=== PATIENT | male | born 1985 | race Caucasian/White ===

== ENCOUNTER 2019-07-25 15:10 | Outpatient (CLI) | payer BC, SELFPAY | END 2019-07-25 15:11 | disposition home or self-care (01) | PROVIDERS: PCP Family Medicine; Visit Provider Surgery | DX: Z01.812 Encounter for preprocedural laboratory examination (principal); K40.90 Unilateral inguinal hernia, without obstruction or gangrene, not specified as recurrent | CPT/HCPCS: 36415; 86850; 86900; 86901 ==

== ENCOUNTER 2019-09-16 17:22 | Outpatient (CLI) | payer BC, SELFPAY ==
--- NOTE | ~2019-09-16 | XR_ITS ---
EXAMINATION: XR chest 2V EXAM DATE: 09/16/2019 17:36 INDICATION: Left-sided chest pain. TECHNIQUE: Frontal and lateral projections of the chest obtained and reviewed. Comparison is made to prior examination from 06/03/2018. FINDINGS: Left midlung zone granuloma. The lungs are otherwise clear. There are no pleural effusion s. The cardiomediastinal silhouette is within normal limits. There is no pneumothorax suspected. T he bones and soft tissues are unremarkable. There is no significant interval change. IMPRESSION: No acute cardiopulmonary findings. Reviewed, dictated and finalized at location A.
== END 2019-09-16 17:23 | disposition home or self-care (01) ==
LOC: ANHIMG 17:25
PROVIDERS: PCP Family Medicine; Visit Provider Family Medicine
DX: R07.89 Other chest pain (principal); R09.1 Pleurisy
CPT/HCPCS: 71046

== ENCOUNTER 2019-09-20 00:20 | Outpatient (CLI) | payer BC, SELFPAY ==
[2019-09-20 16:18] LABS: SARS-CoV-2 RNA PCR Negative
== END 2019-09-20 00:21 | disposition home or self-care (01) ==
PROVIDERS: PCP Family Medicine; Visit Provider Surgery
DX: Z01.818 Encounter for other preprocedural examination (principal); Z11.59 Encounter for screening for other viral diseases; K40.90 Unilateral inguinal hernia, without obstruction or gangrene, not specified as recurrent
CPT/HCPCS: 87635; U0003

== ENCOUNTER 2019-09-20 08:53 | Outpatient (CLI) | payer BC, SELFPAY | END 2019-09-20 08:54 | disposition home or self-care (01) | LOC: ANHLAB 08:54 | PROVIDERS: PCP Family Medicine; Visit Provider Surgery | DX: Z01.818 Encounter for other preprocedural examination (principal); K40.90 Unilateral inguinal hernia, without obstruction or gangrene, not specified as recurrent | CPT/HCPCS: 36415; 86850; 86900; 86901 ==

== ENCOUNTER 2019-09-23 00:40 | Day surgery (SDC) | payer BC, SELFPAY ==
[2019-07-22 13:06] VITALS: BMI 34.4
[2019-09-23] VITALS (10 sets, daily range): BP systolic 108–134; BP diastolic 61–75; PULSE 49–84; RESP 8–17; TEMP 36.2–36.6; O2SAT 96–100
[2019-09-23] MEDS: LACTATED RINGERS 1,000 ML 30 ML IV CONT ×3 (09:05→12:52)
--- NOTE | 2019-09-23 09:09 | P.PNAN_ITS ---
Anes - Initial Pre Proc Eval Procedure: Operation Date: 09/23/19 10:30 Proposed Procedures p Laparoscopic Right Inguinal Hernia Repair With Mesh, Davinci Assisted - Byron Woody DO Date/Time: 09/23/19 09:09 Surgeon: Byron Woody DO Pre Op Diagnosis: Right Inguinal Hernia Patient Data Age: 34 Gender: M Height: 5 ft 10 in Weight: 108.86 kg Allergies Allergy/AdvReac Type Severity Reaction Status Date / Time No Known Allergies Allergy Verified 09/16/19 16:42 Home Medications Medication Instructions Recorded Confirmed Type ibuprofen 800 mg tablet 800 mg PO TID #60 tablet 09/16/19 09/23/19 Rx Patient hx anesthesia problems: none Family hx anesthesia problems: none PMFSH Family History Family History Mother Hypertension Social History Social History Smoking status: Never smoker Alcohol intake: current 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 Questions were solicited and answers provided to the satisfaction of the patient/family/POA.
[2019-09-23] MEDS: IBUPROFEN IV 800 MG/200 ML 800 MG/200 ML BAG 400 MG IVPB (09:10)
--- NOTE | 2019-09-23 10:01 | PM.IMHP ---
H&P: HPI History of Present Illness Chief complaint: Right Inguinal Hernia Narrative: Osmani Phillips is a 34 year old male who presents with pain and a bulge in his right groin for the past year. He noticed this first while doing heavy physical activity. 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 Home Medications and Allergies Home Medications Medication Instructions Recorded Confirmed Type ibuprofen 800 mg tablet 800 mg PO TID #60 tablet 09/16/19 09/23/19 Rx Allergies Allergy/AdvReac Type Severity Reaction Status Date / Time No Known Allergies Allergy Verified 09/23/19 09:12 Vital Signs Vital Signs - 24 hr 09/23/19 08:47 Temperature 36.6 C Pulse Rate 58 L Respiratory Rate 16 Blood Pressure 122/75 Pulse Oximetry 100 Exam : Scrotum: inguinal hernia on the right Assessment and Plan Assessment and plan (1) Reducible right inguinal hernia: Code(s): K40.90 - Unilateral inguinal hernia, without obstruction or gangrene, not specified as recurrent Status: Acute Assessment and Plan: I have recommended laparoscopic right inguinal hernia repair with mesh, da Tad assisted. I have discussed the procedure, risks, benefits, and alternatives with the patient. All questions answered. No changes since last seen in office.
[2019-09-23] MEDS: ceFAZolin 2 GM/D5W 50 ML 2 GM/50 ML BAG IVPB (10:18)
[2019-09-23] MEDS: BUPIVACAINE/EPINEPHRINE 0.5% 30 ML VIAL INFILTRATE (11:00)
--- NOTE | 2019-09-23 11:43 | PM.PROC ---
Procedure Note - Detailed Date of procedure: 09/23/19 Pre-op diagnosis: Right Inguinal Hernia Post-op diagnosis: same (indirect right inguinal hernia) Procedure performed: Laparoscopic right inguinal hernia repair with Progrip mesh, da Tad assisted Description of procedure: Procedure as well as risks, benefits, and alternatives were discussed with the patient. Written consent was obtained and placed in chart prior to procedure. Patient was brought back to surgical suite. He was placed supine on operating table. Time-out was done to confirm patient and procedure. He was then intubated by Anesthesia Department. His abdomen was prepped and draped in sterile fashion using chlorhexidine prep. 0.5% bupivacaine with epinephrine was infiltrated at each location for incision. An 8 mm incision was made in the left lateral abdomen, and a 5 mm Optiview trocar was advanced through the abdominal layers under direct visualization. Once inside the abdominal cavity, carbon dioxide insufflation was used to create a pneumoperitoneum. A camera was inserted and the abdominal cavity was inspected. The patient was placed in slight Trendelenburg position. An 8 millimeter incision was made on the right lateral abdomen and an 8 millimeter trocar was inserted under direct visualization. Another 8 millimeter incision was made just superior to the umbilicus and an 8 millimeter trocar was inserted under direct visualization. The 5 mm port was then removed and this was replaced with another 8 mm robotic port. The robotic arms were brought up to the patient's bedside and secured to the ports. The camera and instruments were inserted. I then moved over to the robotic console and took control of the camera and instruments. After careful inspection of the abdominal cavity, I began scoring the peritoneum along the right lower quadrant using scissors with electrocautery. The preperitoneal plane was entered and this was carefully dissected caudally along the inferior epigastric vessels. Careful dissection with scissors with electrocautery and blunt dissection was used to continue this dissection. I dissected far enough laterally to allow for mesh placement, and also dissected medially to identify the pubic arch and Cecilio's ligament. The hernia sac was identified and carefully dissected posteriorly. The cord contents were also identified and the peritoneum was carefully dissected far enough posteriorly to allow for mesh placement. Once an adequate pocket was created, I then placed the mesh within the preperitoneal pocket and carefully unfolded it. The mesh was centered on the hernia defect with adequate overlap circumferentially. The inferior edge of the mesh was inspected to ensure that it was far enough away from the peritoneal edge. The mesh appeared in proper position overlying the entire myopectineal orifice. The peritoneum was then closed over the mesh using a 3-0 V-lock running absorbable suture. The robotic instruments were removed. The robotic arms were disengaged from the ports and moved away from the bedside. The patient was flattened out in bed, the ports were removed under direct visualization, and the pneumoperitoneum was released. The skin of the incisions was approximated using 4-0 Monocryl subcuticular suture, and Exofin glue was applied on top. The patient was awakened from anesthesia, extubated, and transferred to recovery. Implants: Progrip Mesh 10cm x 15cm Anesthesia: GETA and local (0.5% bupivicaine with epi) Surgeon: Byron Woody DO Estimated blood loss (mL): 5 Drains: No Packing: No Pathology: none sent Complications: No immediate complications Condition: stable Disposition: same day Findings: This is a 34-year-old man who presents with a right groin bulge and tenderness with activity. He noticed this about a year ago while lifting a heavy objects. He has had a dull pain in this region ever since. He was found to have a reducible right inguinal
== END 2019-09-23 15:39 | disposition home or self-care (01) ==
PROVIDERS: PCP Family Medicine; Visit Provider Surgery
PROC: 8E0Y4CZ Robotic Assisted Procedure of Lower Extremity, Percutaneous Endoscopic Approach (ICD-10-PCS; CPT 49650; principal; 2019-09-23 10:30)
DX: K40.90 Unilateral inguinal hernia, without obstruction or gangrene, not specified as recurrent (principal); E66.9 Obesity, unspecified; Z68.34 Body mass index [BMI] 34.0-34.9, adult
CPT/HCPCS: 49650; S2900; 36415; 86850; 86900; 86901; 87635; A9270; C1781; C9803; J0330; J0690; J1100; J1741; J2001; J2250; J2405; J2710; J3010; J7120; U0003

== ENCOUNTER 2022-02-09 22:00 | Emergency (ER) | payer BC, SELFPAY ==
[2022-02-09] VITALS (7 sets, daily range): BP systolic 128–140; BP diastolic 78–87; PULSE 52–60; RESP 15–19; TEMP 36.4; O2SAT 100
--- NOTE | ~2022-02-09 | CT_ITS ---
EXAMINATION: CT abdomen pelvis w con DATE: 02/10/2022 00:04 INDICATION: Right lower quadrant abdominal pain TECHNIQUE: Computed tomography (CT) of the abdomen and pelvis was performed with 100 CC Omnipaque 350 intravenous contrast. Automated exposure control and iterative reconstruction technique were employe d. Exam dose: 1396.89 mGy-cm total exam DLP. COMPARISON: None. FINDINGS: Mild bilateral gynecomastia, right greater than left. Included skeletal structures are unremarkable. The lung bases are clear of infiltrate or consolidatio n. Normal heart size. The liver, gallbladder, bile ducts, spleen, pancreas, pancreatic duct, and adrenal glands and kidneys are normal. There is a very small cyst of the upper pole of the left kidney and a couple of small le ft renal cysts. No urinary tract calculus or hydroureteronephrosis. The urinary bladder is unremarkab le. Normal caliber of the abdominal aorta. No intraperitoneal or retroperitoneal or pelvic mass lesion or adenopathy or ascites. Mild bilateral fat containing inguinal hernias. Normal appendix. No bowel obstruction or intraperitoneal free air. Small fat-containing umbilical hernia. IMPRESSION: Normal renal cysts Normal appendix Bilateral fat-containing inguinal hernias and fat-containing umbilical hernia Reviewed, dictated and finalized at Location A. Reviewed, dictated and finalized at location A.
--- NOTE | 2022-02-09 22:44 | ED.ABDPAIN ---
HPI - Abdominal Pain General Chief Complaint: Abdominal Pain Stated Complaint: Right Lower Quadrant Pain Time Seen by Provider: 02/09/22 22:23 Source: RN notes reviewed History of Present Illness HPI narrative: Patient presents emergency room from home for abdominal pain. Patient states pain began approximately 5 days ago. The pain is located in the right lower quadrant and radiates to the back. Described as sharp and stabbing. Denies any fevers or chills denies any nausea vomiting diarrhea or any other symptoms. States he did not take any medication for the pain patient states the pain does worsen when he sits upright Related Data Home Medications Medication Instructions Recorded Confirmed ibuprofen 800 mg tablet 800 mg PO .prn 10/10/19 10/24/19 Allergies Allergy/AdvReac Type Severity Reaction Status Date / Time No Known Allergies Allergy Verified 02/09/22 22:20 Review of Systems Review of Systems: Gen.: Denies fevers or chills ENT: Denies congestion Respiratory: Denies shortness of breath or cough CV: Denies chest pain or palpitations GI: See HPI Musculoskeletal: Denies back pain or muscle pain Neuro: Denies numbness, tingling, weakness or focal weakness Skin: Denies rash Except as documented, all other systems reviewed and negative [facility] Past Medical History Medical History (Updated 02/10/22 @ 00:25 by Keegan Archer DO) Patient denies significant medical history Surgical History Surgical History S/P laparoscopic hernia repair Family History Family History Mother Hypertension Social History Social History Smoking status: Never smoker Alcohol intake: current 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 No clubbing, cyanosis or edema. NEURO: Awake and alert. Following commands, speech normal, no focal deficits SKIN:: Warm, dry. Normal Color PSYCHIATRIC: Normal affect/mood Course Course Emergency Course: Patient states that they are feeling much better at this time. States abdominal pain has resolved. Repeat abdominal exam shows the patient's abdomen to be soft and nontender. Discussed with patient results of workup and diagnosis. Discussed need for follow-up with primary care physician, reasons to return to the emergency department in proper use of medication. Patient understands and agrees to current treatment plan Vital Signs Vital signs: Vital Signs Temperature 97.6 F 02/09/22 22:20 Pulse Rate 59 L 02/09/22 22:20 Respiratory Rate 16 02/09/22 22:20 Blood Pressure 128/84 02/09/22 22:20 Pulse Oximetry 100 02/09/22 22:20 Oxygen Delivery Room Air 02/09/22 22:20 Temperature 97.6 F 02/09/22 22:20 Pulse Rate 58 L 02/10/22 00:01 Respiratory Rate 16 02/10/22 00:01 Blood Pressure 133/78 02/09/22 23:46 Pulse Oximetry 100 02/10/22 00:01 Oxygen Delivery Room Air 02/09/22 22:20 MDM - Abdominal Pain MDM Narrative Medical decision making narrative: Patient's abdomen is soft without significant pain or signs of surgical abdomen on serial exams. Lab and x-ray evaluations are reviewed and patient is felt to be a reasonable candidate for outpatient management. Patient was instructed as to limitations of x-ray and laboratory evaluation and encouraged to return to ED or primary physician for repeat exam in 12 hours if continued or w
[2022-02-09 22:46] LABS: Basophils Absolute Auto 0.1 K/mm3 (0.0-0.1); Basophils Percent Auto 0.9 % (0.2-1.2); Eosinophils Absolute Auto 0.4 K/mm3 (0-0.3); Eosinophils Percent Auto 3.6 % (0-4.4); Hematocrit 47.7 % (42.0-52.0); Immature Granulocyte Absolute 0.07 K/mm3 (0.00-0.031); Immature Granulocyte Percent A 0.7 % (0-0.5); Lymphocytes Absolute Auto 4.54 K/mm3 (0.9-3.2); Lymphocytes Percent Auto 42.5 % (18.3-44.2); Mean Corpuscular HGB Conc 33.5 g/dl (32-36); Mean Corpuscular Hemoglobin 29.6 pg (26-34); Mean Corpuscular Volume 88.3 fl (80-100); Mean Platelet Volume 9.9 fl (7.4-10.4); Monocytes Absolute Auto 0.9 K/mm3 (0.1-0.6); Monocytes Percent Auto 8.3 % (2.6-8.5); Neutrophils Absolute Auto 4.7 K/mm3 (1.3-6.7); Platelet Count Result 308 k/mm3 (150-375); Red Cell Distribution Width 12.5 % (11.5-14.5); White Blood Count 10.7 K/mm3 (4.5-10.0)
[2022-02-09] MEDS: SODIUM CHLORIDE 0.9% IV 1,000 ML 999 ML IV CONT (22:59)
[2022-02-09] MEDS: KETOROLAC 30 MG/ML VIAL (*BKC) IV PUSH (22:59)
[2022-02-09 23:21] LABS: Appearance Urine Clear (Clear); Bilirubin Urine Negative (Negative); Blood Urine Negative (Negative); Color Urine Yellow (Yellow); Glucose Urine UA Negative (Negative); Ketones Urine Trace mg/dL (Negative); Leukocyte Esterase Ur Negative LEU/UL (Negative); Nitrate Urine Negative (Negative); Protein Urine Negative (Negative); Specific Grav Ur 1.025 (1.001-1.035); Urobilinogen Urine 0.2 mg/dL (<2.0); pH Urine 5.5 (5.0-9.0)
[2022-02-09 23:22] LABS: Mucus Urine Rare /lpf; RBC Urine 0-2 /hpf (0-2); WBC Urine 0-3 /hpf
[2022-02-09 23:39] LABS: Alanine Aminotransferase 42 U/L (6-50); Albumin Level 4.2 g/dL (3.5-5.1); Alkaline Phosphatase 55 U/L (38-126); Anion Gap 11 mmol/L (8-16); Aspartate Amino Transferase 32 U/L (17-59); Bilirubin,Total 0.3 mg/dL (0.2-1.3); Blood Urea Nitrogen 17 mg/dL (9-20); Calcium 8.6 mg/dL (8.4-10.2); Carbon Dioxide 29 mmol/L (22-30); Chloride 100 mmol/L (98-107); Estimated CRCL calculation 109 ml/min; Estimated Glomerular Filt Rate > 60; Glucose 108 mg/dL (65-110); Lipase 470 U/L (23-300); Potassium 3.5 mmol/L (3.4-5.0); Sodium 140 mmol/L (137-145)
[2022-02-09 23:45] LABS: Add Urine Microscopic? YES
[2022-02-10 00:01] VITALS: PULSE 58; RESP 16; O2SAT 100
[2022-02-10 00:51] VITALS: BP 121/78; PULSE 63; RESP 12; O2SAT 100
== END 2022-02-10 00:51 | disposition home or self-care (01) ==
PROVIDERS: Emergency Provider Emergency Medicine
DX: R10.31 Right lower quadrant pain (principal); K40.20 Bilateral inguinal hernia, without obstruction or gangrene, not specified as recurrent; K42.9 Umbilical hernia without obstruction or gangrene
CPT/HCPCS: 36415; 74177; 80053; 81001; 83690; 85025; 96361; 96374; 99284; J1885; J7030; Q9967

== ENCOUNTER 2022-03-05 20:01 | Emergency (ER) | payer BC, SELFPAY ==
[2022-03-05] VITALS (7 sets, daily range): BP systolic 124–140; BP diastolic 80–90; PULSE 50–66; RESP 9–20; TEMP 36.7; O2SAT 98–100
--- NOTE | ~2022-03-05 | CT_ITS ---
EXAMINATION: CT abdomen pelvis w con DATE: 03/06/2022 01:21 INDICATION: Right upper quadrant pain. Nausea. Diarrhea. TECHNIQUE: Computed tomography (CT) of the abdomen and pelvis was performed with 100 cc Omnipaque 350 intravenous contrast. The dose-length product was 1060.55 mGy-cm. Automated exposure control and ite rative reconstruction technique were employed. COMPARISON: CT dated 02/09/2022. FINDINGS: The lung bases are unremarkable. Heart size normal. No significant pleural or pericardial e ffusion. No significant vascular abnormality.Mild fatty infiltration of the liver. The spleen, pancre as, adrenal glands and kidneys are unremarkable. Small bilateral renal cysts. No free air or free flu id. No acute osseous abnormality. No free air or free fluid. There is a small fat-containing umbilica l hernia. There are surgical changes of right inguinal hernia repair. Normal appendix. No acute osseo us abnormality. Mild lumbar spondylosis. IMPRESSION: 1. No acute abdominal abnormality. Reviewed, dictated and finalized at location B.
[2022-03-05 21:23] LABS: Basophils Absolute Auto 0.1 K/mm3 (0.0-0.1); Basophils Percent Auto 0.8 % (0.2-1.2); Eosinophils Absolute Auto 0.4 K/mm3 (0-0.3); Eosinophils Percent Auto 3.4 % (0-4.4); Hematocrit 44.7 % (42.0-52.0); Hemoglobin 15.1 g/dL (14.0-18.0); Immature Granulocyte Absolute 0.04 K/mm3 (0.00-0.031); Immature Granulocyte Percent A 0.4 % (0-0.5); Lymphocytes Absolute Auto 3.19 K/mm3 (0.9-3.2); Lymphocytes Percent Auto 30.7 % (18.3-44.2); Mean Corpuscular HGB Conc 33.8 g/dl (32-36); Mean Corpuscular Hemoglobin 29.5 pg (26-34); Mean Corpuscular Volume 87.5 fl (80-100); Monocytes Absolute Auto 0.9 K/mm3 (0.1-0.6); Monocytes Percent Auto 8.9 % (2.6-8.5); Neutrophils Absolute Auto 5.8 K/mm3 (1.3-6.7); Neutrophils Percent Auto 55.8 % (45.5-73.1); Platelet Count Result 291 k/mm3 (150-375); Red Blood Count 5.11 M/mm3 (4.6-6.20); Red Cell Distribution Width 12.4 % (11.5-14.5); White Blood Count 10.4 K/mm3 (4.5-10.0)
[2022-03-05 21:32] LABS: Alanine Aminotransferase 40 U/L (6-50); Albumin Level 4.6 g/dL (3.5-5.1); Alkaline Phosphatase 49 U/L (38-126); Anion Gap 11 mmol/L (8-16); Aspartate Amino Transferase 37 U/L (17-59); Bilirubin,Total 0.5 mg/dL (0.2-1.3); Blood Urea Nitrogen 17 mg/dL (9-20); Carbon Dioxide 29 mmol/L (22-30); Chloride 102 mmol/L (98-107); Estimated Glomerular Filt Rate > 60; Glucose 100 mg/dL (65-110); Lipase 138 U/L (23-300); Potassium 3.8 mmol/L (3.4-5.0); Sodium 142 mmol/L (137-145)
[2022-03-05 21:44] LABS: Add Urine Microscopic? NO; Appearance Urine Clear (Clear); Bilirubin Urine Negative (Negative); Blood Urine Negative (Negative); Color Urine Yellow (Yellow); Glucose Urine UA Negative (Negative); Ketones Urine Negative (Negative); Leukocyte Esterase Ur Negative LEU/UL (Negative); Nitrate Urine Negative (Negative); Protein Urine Negative (Negative); Specific Grav Ur 1.021 (1.001-1.035); Urobilinogen Urine Negative mg/dL (<2.0)
[2022-03-06] VITALS (19 sets, daily range): BP systolic 117–142; BP diastolic 81–97; PULSE 48–70; RESP 9–19; O2SAT 99–100
--- NOTE | 2022-03-06 00:01 | ED.ABDPAIN ---
HPI - Abdominal Pain General Chief Complaint: Abdominal Pain <RICKY Martinez Last Filed: 03/06/22 04:09> Stated Complaint: Right upper abd pain <RICKY Martinez Last Filed: 03/06/22 04:09> Time Seen by Provider: 03/05/22 22:55 <RICKY Martinez Last Filed: 03/06/22 04:09> Source: patient and old records reviewed <RICKY Martinez Last Filed: 03/06/22 04:09> Mode of arrival: ambulatory <RICKY Martinez Last Filed: 03/06/22 04:09> Limitations: no limitations <RICKY Martinez Last Filed: 03/06/22 04:09> History of Present Illness HPI narrative: Patient is a 37-year-old male who presents the ED with report of right upper quadrant abdominal pain. Patient reports the pain has been present for the past 1.5 months. He states the pain has been fairly constant, worse with laying flat. Radiates around his right mid back. No significant aggravation with eating. He has intermittently been taking Tylenol for the pain, without much relief. He was seen in the ED after the initial onset of pain and had a negative work-up. He denies any worsening of the pain recently, but reported he just wanted to be seen again for this. He reports occasional nausea, denies vomiting, fever, diarrhea, constipation, acid reflux symptoms, urinary sx's, chest pain, difficulty breathing. <RICKY Martinez Last Filed: 03/06/22 04:09> Related Data Allergies/Adverse Reactions: Allergies Allergy/AdvReac Type Severity Reaction Status Date / Time No Known Allergies Allergy Verified 03/13/22 15:55 <RICKY Martinez Last Filed: 03/06/22 04:09> Review of Systems Review of Systems: CONSTITUTIONAL: Denies fever, chills, or sweats. ENT: Denies rhinorrhea, congestion, sore throat. CARDIOVASCULAR: Denies chest pain. RESPIRATORY: Denies cough or dyspnea. GASTROINTESTINAL: Reports right upper quadrant abdominal pain, nausea. Denies constipation, vomiting, or diarrhea. GENITOURINARY: Denies dysuria or hematuria. MUSCULOSKELETAL: Reports pain to right mid back, radiating from abdominal pain. <Rosa Elena Araujo PA-C - Last Filed: 03/06/22 04:09> All systems reviewed & are unremarkable except as noted in HPI and below <Rosa Elena Araujo PA-C Last Filed: 03/06/22 04:09> [facility] Past Medical History Medical History: Medical History Chest pain GERD (gastroesophageal reflux disease) Nausea Patient denies significant medical history RUQ pain <RICKY Martinez Last Filed: 03/06/22 04:09> Surgical History Surgical History: Surgical History S/P laparoscopic hernia repair <Rosa Elena Araujo PA-C - Last Filed: 03/06/22 04:09> Family History Family History: Family History Mother Hypertension <RICKY Martinez Last Filed: 03/06/22 04:09> Social History Social History: Social History Smoking status: Never smoker Alcohol intake: current 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 HEAD: Normocephalic, atraumatic. NECK: Supple. No adenopathy, no masses. RESPIRATORY: Airway patent, respirations nonlabored. Clear to auscultation bilaterally, no rales, rhonchi, wheezing. CARDIOVASCULAR: Borderline bradycardic with regular rhythm without murmurs, rubs, or gallops. Peripheral pulses 2+ and equal bilaterally. ABDOMINAL: Soft, tenderness to palpation throughout epigastric region and into right upper quadrant, nondistended, no hepatosplenomegaly. Normoactive BS. MUSCULOSKELETAL: Moves all
[2022-03-06] MEDS: SODIUM CHLORIDE 0.9% IV 1,000 ML 999 ML IV CONT (00:44)
[2022-03-06] MEDS: ONDANSETRON INJ 4 MG/2 ML VIAL IV PUSH (00:45)
[2022-03-06] MEDS: BELLADONNA ALK/PHENOB ELIX 10 ML, MAG HYDROX/ALUMINUM HYD/SIMETH 30 ML, LIDOCAINE HCL 2... PO (02:26)
[2022-03-06] MEDS: KETOROLAC 30 MG/ML VIAL (*BKC) IV PUSH (02:57)
[2022-03-06] MEDS: DICYCLOMINE HCL INJ 20 MG/2 ML VIAL IM (02:59)
== END 2022-03-06 03:28 | disposition home or self-care (01) ==
PROVIDERS: Emergency Provider Emergency Medicine; PCP Emergency Medicine
DX: R10.11 Right upper quadrant pain (principal)
CPT/HCPCS: 36415; 74177; 80053; 81003; 83690; 85025; 96361; 96365; 96372; 96375; 99284; A9270; J0131; J0500; J1885; J2405; J7030; Q9967

== ENCOUNTER 2022-03-10 09:02 | Outpatient (CLI) | payer BC, SELFPAY ==
[2022-03-10 09:15] LABS: Hematocrit 48.1 % (42.0-52.0); Hemoglobin 16.3 g/dL (14.0-18.0); Mean Corpuscular HGB Conc 33.9 g/dl (32-36); Mean Corpuscular Hemoglobin 29.9 pg (26-34); Mean Corpuscular Volume 88.1 fl (80-100); Platelet Count Result 300 k/mm3 (150-375); Red Blood Count 5.46 M/mm3 (4.6-6.20); Red Cell Distribution Width 12.5 % (11.5-14.5); White Blood Count 7.6 K/mm3 (4.5-10.0)
[2022-03-10 09:36] LABS: Alanine Aminotransferase 48 U/L (6-50); Albumin Level 4.8 g/dL (3.5-5.1); Alkaline Phosphatase 61 U/L (38-126); Amylase 60 U/L (30-110); Anion Gap 9 mmol/L (8-16); Aspartate Amino Transferase 34 U/L (17-59); Bilirubin,Total 0.6 mg/dL (0.2-1.3); Blood Urea Nitrogen 20 mg/dL (9-20); CRP < 0.5 mg/dL (<1.0); Calcium 9.1 mg/dL (8.4-10.2); Carbon Dioxide 30 mmol/L (22-30); Chloride 100 mmol/L (98-107); Estimated Glomerular Filt Rate > 60; Glucose 81 mg/dL (65-110); Lipase 140 U/L (23-300); Potassium 4.1 mmol/L (3.4-5.0); Sodium 139 mmol/L (137-145)
[2022-03-10 09:43] LABS: Troponin I < 0.012 ng/mL (0.000-0.034)
[2022-03-10 10:08] LABS: Erythrocyte Sedimentation Rate 4 mm/hr (0-20)
== END 2022-03-10 09:03 | disposition home or self-care (01) ==
LOC: ANHLAB 09:03
PROVIDERS: PCP Emergency Medicine; Visit Provider Nurse Practitioner
DX: E66.9 Obesity, unspecified (principal); K21.9 Gastro-esophageal reflux disease without esophagitis; R10.11 Right upper quadrant pain; R07.9 Chest pain, unspecified
CPT/HCPCS: 36415; 80053; 82150; 83690; 84443; 84484; 85027; 85652; 86140

== ENCOUNTER 2022-03-16 10:24 | Outpatient (CLI) | payer BC, SELFPAY ==
--- NOTE | ~2022-03-16 | NM_ITS ---
NM hepatobiliary wo pharm Procedure: Hepatobiliary scan performed following IV administration 5 mCi Tc 99m Choletec. At 60 min utes 3 mcg CCK administered IV for evaluation of gallbladder ejection fraction. Indication: Right upper quadrant pain Comparison: Ultrasound dated 03/16/2022 Findings: There is normal radiotracer uptake in the liver parenchyma with prompt excretion into the b iliary tract. Gallbladder visualized at 30 minutes. Small bowel visualized at 55 minutes. Gallbla dder ejection fraction measures 30 %. (Normal is considered 10-90%, but most patients with gallbladde r dysfunction have GBEF of less than 35%) Impression: 1: Low gallbladder ejection fraction measuring 30%. Low GBEF is associated with gallbladder dysfunct ion, although not specific for acute or chronic cholecystitis. Reviewed, dictated and finalized at location A. Impression: 1: Low gallbladder ejection fraction measuring 30%. Low GBEF is associated wit h gallbladder dysfunction, although not specific for acute or chronic cholecyst itis.
--- NOTE | ~2022-03-16 | US_ITS ---
US abdomen limited INDICATION: Right upper quadrant pain PROCEDURE: Realtime right upper abdominal ultrasound. COMPARISON: No prior studies for comparison. FINDINGS: The pancreas is normal without focal mass or pancreatic ductal dilation. Liver echotexture is normal without focal mass or intrahepatic biliary dilatation. There is normal directional flow i n the portal vein. The gallbladder is normal without stones, gallbladder wall thickening or pericholecystic fluid. Comm on bile duct measures 8 mm. No sonographic Love's sign. IMPRESSION: 1: Mildly dilated common bile duct measuring 8 mm. No obstructing stone or mass identified. Consider correlation with MRCP. Reviewed, dictated and finalized at location A.
== END 2022-03-16 10:25 | disposition home or self-care (01) ==
PROVIDERS: PCP Emergency Medicine; Visit Provider Nurse Practitioner
DX: R10.11 Right upper quadrant pain (principal); K21.9 Gastro-esophageal reflux disease without esophagitis; E66.9 Obesity, unspecified; R11.0 Nausea; R07.9 Chest pain, unspecified
CPT/HCPCS: 76705; 78226; A9537

== ENCOUNTER 2022-03-20 00:21 | Day surgery (SDC) | payer BC, SELFPAY ==
[2022-03-13 13:41] VITALS: BMI 34.4
[2022-03-20 06:50] VITALS: BP 122/86; PULSE 64; RESP 17; TEMP 35.9; O2SAT 99; BMI 33.3
[2022-03-20] MEDS: LACTATED RINGERS 1,000 ML 150 ML IV CONT (06:59)
--- NOTE | 2022-03-20 07:51 | P.PNAN_ITS ---
Anes - Initial Pre Proc Eval Procedure: Operation Date: 03/20/22 08:00 Proposed Procedures p Esophagogastroduodenoscopy EGD - Baldo Davis MD Date/Time: 03/20/22 07:51 Surgeon: Baldo Davis MD Pre Op Diagnosis: RUQ pain, GERD Patient Data Age: 37 Gender: M Height: 1.78 m Weight: 105.5 kg Last Vital Signs Temp 96.7 F L 03/20/22 06:50 Pulse 64 03/20/22 06:50 Resp 17 03/20/22 06:50 BP 122/86 03/20/22 06:50 Pulse Ox 99 03/20/22 06:50 O2 Del Method Room Air 03/20/22 06:50 Allergies Allergy/AdvReac Type Severity Reaction Status Date / Time No Known Allergies Allergy Verified 03/20/22 06:48 Home Medications Medication Instructions Recorded Confirmed Type omeprazole 40 mg capsule,delayed 40 mg PO DAILY #30 caps 03/10/22 03/20/22 Rx release Patient hx anesthesia problems: none Family hx anesthesia problems: none Results Review: All pre-operative results and documents have been reviewed as part of the pre- operative evaluation. 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 Informed Consent: The patient's anesthetic plan and its attendant risks and benefits were discussed with the patient/family/POA. Questions were solicited and answers provided to the satisfaction of the patient/family/POA.
--- NOTE | 2022-03-20 07:54 | WPDHPUPDATE1 ---
History and Physical Update Update Date/Time: 03/20/22 07:54 History and Physical has been reviewed, including an updated exam of the patient. There are NO changes in the patient's condition. Risks, benefits, and alternatives have been discussed and questions answered. Patient agrees to proceed with procedure.
[2022-03-20 08:04] VITALS: BP 112/7; PULSE 66; RESP 19; TEMP 36.2; O2SAT 100
[2022-03-20 08:14] VITALS: BP 112/7; PULSE 62; RESP 15; TEMP 36.2; O2SAT 98
[2022-03-20 08:24] VITALS: BP 123/75; PULSE 62; RESP 16; TEMP 36.2; O2SAT 98
== END 2022-03-20 08:30 | disposition home or self-care (01) ==
PROVIDERS: PCP Emergency Medicine; Visit Provider Internal Medicine Gastroenterology
PROC: 0DJ08ZZ Inspection of Upper Intestinal Tract, Via Natural or Artificial Opening Endoscopic (ICD-10-PCS; CPT 43235; principal; 2022-03-20 08:00)
DX: R10.11 Right upper quadrant pain (principal); K21.9 Gastro-esophageal reflux disease without esophagitis; R07.9 Chest pain, unspecified; E66.9 Obesity, unspecified; Z68.33 Body mass index [BMI] 33.0-33.9, adult
CPT/HCPCS: 43239; 88305; J2704; J7120

== ENCOUNTER 2022-03-28 15:24 | Outpatient (CLI) | payer BC, SELFPAY | END 2022-03-28 15:25 | disposition home or self-care (01) | LOC: ANHSURGERY 15:27 | PROVIDERS: PCP Emergency Medicine; Visit Provider Surgery | DX: K82.8 Other specified diseases of gallbladder (principal); Z01.818 Encounter for other preprocedural examination | CPT/HCPCS: 36415; 86850; 86900; 86901 ==

== ENCOUNTER 2022-03-29 00:52 | Day surgery (SDC) | payer BC, SELFPAY ==
[2022-03-24 09:14] VITALS: BMI 33.0
--- NOTE | 2022-03-24 09:17 | PC.NURSE ---
Report to the Outpatient Waiting Room, entrance under the green pavilion located off [facility], at time 1:00 on date 03/29/22. Planned Procedure Time: 3:00. Time changes happen often and if your time is changed the preop area will call you the afternoon before. - You and your visitor will be asked to self-screen and do not enter if you have any COVID symptoms. - We encourage only one visitor and NO visitors under age 16 are allowed at this time. Your visitor will receive communication by the phone number that is given day of service. - The patient visitor is requested to social distance or may leave the building when not with patient due to restrictions. - A mask is OPTIONAL within the hospital. Patients may have clear liquids (water, carbonated beverages, clear teas, apple juice) until 3 hours prior to surgery (12:00) with a maximum of 20 ounces. - No food from midnight until time of surgery Take the following medications with a SIP of water the morning of surgery: NONE Medications to discontinue per physician: N/A Date to take last dose: N/A Please no make-up, nail fijian, hairspray, perfume, deodorant, or body powder the day of surgery. No jewelry (including any body piercings) or valuables the day of surgery, leave them at home. Please take a shower or bath the night before, or the morning of, surgery with an antibacterial soap (HIBICLENS). Wear comfortable, loose fitting clothing. - Jewelry must be removed prior to entering the operating room. Rings and piercings that are not removed may be cut off. - The hospital will not accept responsibility for valuables. - Please leave all valuables, including medications, at home the day of surgery. If you are going home after surgery, a licensed drivers license examiner must drive you home. - NO public transportation without another adult. - We recommend that an adult stay with you for 24 hours following discharge. - We also recommend that you do not drive, make important decision, drink alcoholic beverages, or take any drugs that were not prescribed by your health care provider for at least 24 hours after your discharge time. Follow any additional instructions given to you from your surgeon. If you or anyone in your household have experienced Covid symptoms in the past week, please notify your surgeon or the nurse liaison at the phone number below for possible testing. Telephone instructions given to PT - EMANUEL MUNOZ and asked if any additional questions and then verbalized understanding. Patient advised to call surgeon office or pre surgery nurse liaison [phone] if any additional questions.
[2022-03-29] VITALS (9 sets, daily range): BP systolic 120–144; BP diastolic 78–93; PULSE 54–86; RESP 12–18; TEMP 36.4–36.8; O2SAT 98–100
--- NOTE | ~2022-03-29 | XR_ITS ---
EXAMINATION: XR cholangiogram surg 1st inj DATE: 03/29/2022 16:58 INDICATION: Laparoscopic cholangiogram TECHNIQUE: A single fluoroscopic image of the right upper quadrant was obtained during intraoperative cholangiography performed by the surgeon. I was not present in the operating room. Fluoroscopy expos ure time was 26.8 seconds. COMPARISON: None. FINDINGS: Fluoroscopic image demonstrates a normal common bile duct without stones or stricture. The cystic duct inserts on the distal common bile duct. IMPRESSION: 1. No stones or stricture identified in the common bile duct. Reviewed, dictated and finalized at location F. ER TANK TENDER
--- NOTE | 2022-03-29 07:29 | P.PNAN_ITS ---
Anes - Initial Pre Proc Eval Procedure: Operation Date: 03/29/22 15:00 Proposed Procedures p Laparoscopic Cholecystectomy with Intraoperative Cholangiogram, Possible Open - Byron Woody DO Date/Time: 03/29/22 07:29 Surgeon: Byron Woody DO Pre Op Diagnosis: Biliary Dyskinesia Patient Data Age: 37 Gender: M Height: 1.78 m Weight: 104.33 kg Allergies Allergy/AdvReac Type Severity Reaction Status Date / Time No Known Allergies Allergy Verified 03/29/22 13:01 Home Medications Medication Instructions Recorded Confirmed Type omeprazole 40 mg capsule,delayed 40 mg PO DAILY #30 caps 03/10/22 03/29/22 Rx release Patient hx anesthesia problems: none Family hx anesthesia problems: none Results Review: All pre-operative results and documents have been reviewed as part of the pre- operative evaluation. FORMERLY [facility], [facility] Past Medical History Medical History (Updated 03/29/22 @ 07:29 by Kimo Kapadia MD) Chest pain GERD (gastroesophageal reflux disease) Nausea Obesity Patient denies significant medical history RUQ pain Surgical History Surgical History H/O right inguinal hernia repair Family History Family History Mother Hypertension Other Carcinoma of colon Diabetes mellitus Social History Social History Smoking status: Never smoker Alcohol intake: current Alcohol use details: NOT IN SEVERAL MONTHS Substance use: never Substance use type: does not use Living arrangements: with family 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 Informed Consent: The patient's anesthetic plan and its attendant risks and benefits were discussed with the patient/family/POA. Questions were solicited and answers provided to the satisfaction of the patient/family/POA.
[2022-03-29] MEDS: LACTATED RINGERS 1,000 ML 30 ML IV CONT ×2 (13:29→16:52)
[2022-03-29] MEDS: ACETAMINOPHEN 500 MG TABLET 1000 MG PO (13:30)
[2022-03-29] MEDS: KETOROLAC 15 MG/ML VIAL (*BKC) IV PUSH (13:32)
--- NOTE | 2022-03-29 14:54 | SUR.PREOP ---
Discussed delay with patient and his . Voices understanding. No needs at present.
--- NOTE | 2022-03-29 15:08 | WPDHPUPDATE1 ---
History and Physical Update Update Date/Time: 03/29/22 15:08 History and Physical has been reviewed, including an updated exam of the patient. There are NO changes in the patient's condition. Risks, benefits, and alternatives have been discussed and questions answered. Patient agrees to proceed with procedure.
[2022-03-29] MEDS: ceFAZolin 2 GM/D5W 50 ML 2 GM/50 ML BAG IVPB (15:32)
[2022-03-29] MEDS: BUPIVACAINE/EPINEPHRINE 0.25% 50 ML VIAL INFILTRATE (16:39)
--- NOTE | 2022-03-29 17:06 | W.PM.PROC2 ---
Procedure Note - Detailed Date of Procedure 03/29/22 Pre-op Diagnosis Biliary Dyskinesia Post-op Diagnosis Same Procedure Performed Laparoscopic Cholecystectomy with intraoperative cholangiogram Surgeon Byron Woody, DO Anesthesia General and Local (0.5% bupivacaine) Indications This is a 37-year-old man who presented with right upper quadrant pain for the past 2 months. He had noticed that eating fried or fatty foods seem to increase this pain. He was seen by Gastroenterology a gallbladder ultrasound was obtained which showed a normal gallbladder but slightly dilated common bile duct at 8 mm. Then also underwent HIDA scan which showed a gallbladder ejection fraction of 30%. He has also recently an EGD which was normal. His liver enzymes were normal. Discussions were made with the patient about treatment options and decision was made to proceed with laparoscopic cholecystectomy with intraoperative cholangiogram, possible open. Findings Laparoscopic cholecystectomy with cholangiogram was obtained. The gallbladder appeared slightly dilated but had no other significant abnormalities. The cystic duct appeared normal in size. Intraoperative cholangiogram was obtained using Omnipaque contrast and no filling defects obstruction of the cystic duct were noted. The gallbladder was removed and sent lab for pathology. Description of Procedure Procedure as well as risks, benefits, and alternatives were discussed with patient. Written consent was obtained and placed in chart prior to procedure. The patient was brought back to surgical suite. Patient was placed in supine position on operating table. Time-out was done to confirm patient and procedure. Patient was then intubated by the anesthesia department. Abdomen was prepped and draped in sterile fashion using chlorhexidine prep. 0.5% bupivacaine with epinephrine was infiltrated at each site of incision. A 5 millimeter incision was made near the umbilicus, and a 5 millimeter Optiview trocar was advanced through the abdominal layers under direct visualization. Once inside the abdominal cavity, carbon dioxide was insufflated to create a pneumoperitoneum. The camera was inserted and the abdomen was inspected. No immediate abnormalities were identified. The patient was placed in reverse Trendelenburg position and rotated slightly to the left. An 11 millimeter incision was made in the subxiphoid region, and an 11 millimeter trocar was inserted under direct visualization. Two 5 millimeter incisions were made in the right upper quadrant, and two 5 millimeter trocars were inserted under direct visualization. The gallbladder was identified and grasped at the fundus and retracted superiorly. It was then grasped at the infundibulum retracted laterally. Careful dissection around the neck of the gallbladder was performed using blunt dissection with a [place] grasper and hook electrocautery. The cystic duct was identified, and a window was created behind it. The cystic artery was also identified and a window was created behind it. The critical view of safety was identified, visualizing the cystic duct running directly into the neck of the gallbladder, and the cystic artery running directly into the wall of the gallbladder. A 5 millimeter clip photography professor was then used to place 2 clips proximally and 1 clip distally on the cystic artery. It was then then transected using endoscopic scissors. A Dodd clamp was then placed across the neck of the gallbladder. The Dodd cholangiocatheter was then advanced into the distal neck of the gallbladder. Catheter flushed with saline with ease. The patient was then flattened out of bed and fluoroscopy was used to perform an intraoperative cholangiogram using Omnipaque contrast. The images were sent to Radiology for interpretation. The patient was then placed back in reverse Trendelenburg position. A 5 mm Endoclip photography professor was then used to place 2 clips proximally and 1 clip dista
[2022-03-29] MEDS: oxyCODONE HCL (*CRX) 5 MG TAB IR PO (18:04)
[2022-03-29] MEDS: fentaNYL CITRATE INJ (*CRX) 100 MCG/2 ML VIAL 25 MCG IV PUSH (18:52)
== END 2022-03-29 19:35 | disposition home or self-care (01) ==
PROVIDERS: PCP Emergency Medicine; Visit Provider Surgery
PROC: 0FT44ZZ Resection of Gallbladder, Percutaneous Endoscopic Approach (ICD-10-PCS; CPT 47562; principal; 2022-03-29 15:00)
DX: K81.1 Chronic cholecystitis (principal); K21.9 Gastro-esophageal reflux disease without esophagitis; E66.9 Obesity, unspecified; Z68.32 Body mass index [BMI] 32.0-32.9, adult
CPT/HCPCS: 47563; 36415; 74300; 86850; 86900; 86901; 88304; A9270; J0690; J1100; J1170; J1885; J2250; J2405; J2704; J2710; J3010; J7030; J7120

== ENCOUNTER 2022-04-05 06:36 | Emergency (ER) | payer BC, SELFPAY ==
[2022-04-05 06:39] VITALS: BP 140/75; PULSE 79; RESP 14; TEMP 36.2; O2SAT 100
[2022-04-05 07:02] LABS: Basophils Absolute Auto 0.1 K/mm3 (0.0-0.1); Basophils Percent Auto 0.8 % (0.2-1.2); Eosinophils Absolute Auto 0.4 K/mm3 (0-0.3); Eosinophils Percent Auto 4.5 % (0-4.4); Hematocrit 48.9 % (42.0-52.0); Hemoglobin 16.5 g/dL (14.0-18.0); Immature Granulocyte Absolute 0.03 K/mm3 (0.00-0.031); Immature Granulocyte Percent A 0.3 % (0-0.5); Lymphocytes Absolute Auto 3.16 K/mm3 (0.9-3.2); Lymphocytes Percent Auto 34.6 % (18.3-44.2); Mean Corpuscular HGB Conc 33.7 g/dl (32-36); Mean Corpuscular Hemoglobin 30.1 pg (26-34); Mean Corpuscular Volume 89.2 fl (80-100); Mean Platelet Volume 9.7 fl (7.4-10.4); Monocytes Absolute Auto 0.7 K/mm3 (0.1-0.6); Monocytes Percent Auto 7.8 % (2.6-8.5); Neutrophils Absolute Auto 4.8 K/mm3 (1.3-6.7); Platelet Count Result 331 k/mm3 (150-375); Red Blood Count 5.48 M/mm3 (4.6-6.20); Red Cell Distribution Width 12.5 % (11.5-14.5); White Blood Count 9.1 K/mm3 (4.5-10.0)
[2022-04-05 07:11] LABS: Appearance Urine Clear (Clear); Bilirubin Urine Negative (Negative); Blood Urine Negative (Negative); Color Urine Yellow (Yellow); Glucose Urine UA Negative (Negative); Ketones Urine Negative (Negative); Leukocyte Esterase Ur Negative LEU/UL (Negative); Nitrate Urine Negative (Negative); Protein Urine Negative (Negative); Urobilinogen Urine 0.2 mg/dL (<2.0); pH Urine 5.5 (5.0-9.0)
[2022-04-05 07:12] LABS: Add Urine Microscopic? NO
[2022-04-05 07:17] LABS: Alanine Aminotransferase 74 U/L (6-50); Albumin Level 4.8 g/dL (3.5-5.1); Alkaline Phosphatase 61 U/L (38-126); Anion Gap 9 mmol/L (8-16); Aspartate Amino Transferase 43 U/L (17-59); Bilirubin,Total 0.8 mg/dL (0.2-1.3); Blood Urea Nitrogen 13 mg/dL (9-20); Carbon Dioxide 29 mmol/L (22-30); Chloride 103 mmol/L (98-107); Estimated CRCL calculation 107 ml/min; Estimated Glomerular Filt Rate > 60; Glucose 104 mg/dL (65-110); Lipase 119 U/L (23-300); Potassium 4.1 mmol/L (3.4-5.0); Sodium 141 mmol/L (137-145)
[2022-04-05] MEDS: KETOROLAC 30 MG/ML VIAL (*BKC) IV PUSH (07:27)
[2022-04-05] MEDS: SODIUM CHLORIDE 0.9% IV 1,000 ML 999 ML IV CONT (07:27)
[2022-04-05] MEDS: diazePAM INJ (*CRX) 10 MG/2 ML SYRINGE 2 MG IV PUSH (07:30)
--- NOTE | 2022-04-05 07:36 | ED.ABDPAIN ---
HPI - Abdominal Pain General Chief Complaint: Abdominal Pain Stated Complaint: abd pain (GB removed last weds) Time Seen by Provider: 04/05/22 07:01 History of Present Illness HPI narrative: Patient is a 37-year-old male who presents ER with right-sided back pain. Reports he had surgery on 03/29/2022 to remove his gallbladder. Reports he has been having this back pain prior to the surgery and continues to have afterwards. The pain in his abdomen has decreased. Pain is worse with different movements and laying in certain positions. No numbness or tingling to the arms or legs. She did report that radiated up towards his neck last night. Has been taking his Tylenol with hydrocodone without improvement. Denies trauma. No urinary frequency urgency or dysuria. No postoperative fevers. He does have some mild diarrhea. He is without nausea or vomiting. He has no chest discomfort no pain with deep breaths. Related Data Allergies Allergy/AdvReac Type Severity Reaction Status Date / Time No Known Allergies Allergy Verified 04/05/22 06:42 Review of Systems Review of Systems: All systems reviewed & are unremarkable except as noted in HPI and below Constitutional: Constitutional: Denies chills, Denies fatigue and Denies fever(s) ENT: Denies nasal congestion and Denies sore throat Cardiovascular: Cardiovascular: Denies chest pain, Denies rapid heart rate and Denies radiating jaw, neck or arm pain Respiratory: Respiratory: Denies cough and Denies dyspnea Gastrointestinal: Gastrointestinal: Denies abdominal pain, Reports diarrhea, Denies nausea and Denies vomiting Genitourinary: Genitourinary: Denies dysuria and Denies urinary frequency Musculoskeletal: Musculoskeletal: Reports back pain, Denies arthralgias and Denies joint swelling Neurologic: Denies focal weakness and Denies numbness [facility] Past Medical History Medical History (Updated 04/05/22 @ 08:45 by Cipriano Ramírez MD) Chest pain GERD (gastroesophageal reflux disease) Nausea Obesity Patient denies significant medical history RUQ pain Surgical History Surgical History H/O right inguinal hernia repair Family History Family History Mother Hypertension Other Carcinoma of colon Diabetes mellitus Social History Social History (Reviewed 03/27/22 @ 09:56 by ANAND Zarco Smoking status: Never smoker Alcohol intake: current Alcohol use details: NOT IN SEVERAL MONTHS Substance use: never Substance use type: does not use 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 HEAD: Normocephalic, atraumatic. EYES: PERRL and EOMI. CHEST: Clear to auscultation. No respiratory distress. HEART: Regular rate and rhythm. Normal peripheral pulses. ABDOMEN: Soft, nontender, nondistended, normal active bowel sounds. Back: No midline tenderness to T/L-spine. There is paraspinal muscular tenderness in the low thoracic and upper lumbar region that reproduces patient's pain. No left-sided paraspinal tenderness. EXTREMITIES: Normal range of motion. No edema. SKIN: Warm, dry, no rash. Well-healing surgical port sites. NEURO: Alert and oriented x3. PSYCH: Normal mood and affect. Course Course Emergency Course: Labs unremarkable. Mild improvement in pain with Toradol/Valium. Will discharge with anti-inflammatories muscle relaxers. Recommend follow-up PCP for further evaluation. Do not feel this is related to surgery. Vital Signs Vital signs: Vital Signs Temperature 97.1 F L 04/05/22 06:39 Pulse Rate 79 04/05/22 06:39 Respiratory Rate 14 04/05/22 06:39 Blood Pressure 140/75 04/05/22 06:39 Pulse Oximetry 100 04/05/22 06:39 Oxygen Delivery Room Air 04/05/22 06:39 Temperature 97.1 F L 11
[2022-04-05 09:05] VITALS: BP 120/74; PULSE 64; RESP 14; O2SAT 100
== END 2022-04-05 09:06 | disposition home or self-care (01) ==
PROVIDERS: Emergency Medicine; Emergency Provider Emergency Medicine; PCP Emergency Medicine
DX: M54.50 Low back pain, unspecified (principal); K21.9 Gastro-esophageal reflux disease without esophagitis; E66.9 Obesity, unspecified; Z68.32 Body mass index [BMI] 32.0-32.9, adult
CPT/HCPCS: 36415; 80053; 81003; 83690; 85025; 96361; 96374; 96375; 99284; J1885; J3360; J7030

== ENCOUNTER 2022-05-18 11:58 | Emergency (ER) | payer BC, SELFPAY ==
--- NOTE | ~2022-05-18 | XR_ITS ---
EXAMINATION: XR chest 2V DATE: 05/18/2022 12:31 INDICATION: Chest pain. TECHNIQUE: Frontal and lateral views of the chest were obtained. COMPARISON: Chest 2 views 09/16/2019 FINDINGS: A calcified left lung nodule and calcified left hilar lymph nodes are consistent with old g ranulomatous disease. No pleural effusion or pneumothorax. The heart size is normal. Surgical clips i n the right upper quadrant are likely from cholecystectomy. IMPRESSION: 1. No acute cardiopulmonary disease. Reviewed, dictated and finalized at location A. DESIGN ENGINEER
--- NOTE | ~2022-05-18 | CT_ITS ---
EXAMINATION: CTA chest abdomen pelvis DATE: 05/18/2022 21:27 PAINTING TECHNICIAN INDICATION: Chest and back pain TECHNIQUE: Computed tomographic angiography (CTA) of the chest, abdomen, and pelvis was performed wit hout and with 100 mL Omnipaque-350 intravenous contrast. The dose-length product was 1071.82 mGy-cm. Maximum intensity projection 3D-reconstructions of the aorta and other arteries were constructed by sherwin beck technologist on a separate workstation. COMPARISON: CT dated 03/06/2022. FINDINGS: CHEST CTA: No evidence for aortic aneurysm or dissection. No significant pleural or pericardial effusion. Heart size normal. No thoracic lymphadenopathy. Calcified granuloma of the left upper lobe. There are calci fied mediastinal lymph nodes, consistent with chronic granulomatous disease. No focal airspace consol idation. No pneumothorax. No endobronchial lesions. There is gynecomastia. Mild thoracic and lumbar s pondylosis. No focal lytic or blastic lesions. ABDOMEN AND PELVIS CTA: Fatty infiltration of the liver. Status post cholecystectomy. The spleen, pancreas, adrenal glands ar e unremarkable. Right kidney is unremarkable. There are small subcentimeter hypodensities of the left kidney, most likely benign cysts. No evidence for aortic aneurysm or dissection. The celiac axis, SM A, renal arteries and RACHEAL are widely patent. Nonobstructive bowel gas pattern. No free air or free fl uid. Normal appendix. There is a urachal remnant of the bladder. There are changes of previous right inguinal hernia repair. IMPRESSION: 1. No acute abnormality of the chest, abdomen or pelvis. No significant vascular abnormality. Reviewed, dictated and finalized at location A. TING TECHNICIAN IMPRESSION: 1. No acute abnormality of the chest, abdomen or pelvis. No significant vascula r abnormality.
[2022-05-18 12:02] VITALS: BP 134/88; PULSE 69; RESP 18; TEMP 36.4; O2SAT 100
--- NOTE | 2022-05-18 12:10 | ECG_ITS ---
Measurements Intervals [place] Rate: 61 P: 21 GA: 128 QRS: 24 QRSD: 94 T: 22 QT: 373 QTc: 376 Interpretive Statements SINUS RHYTHM EARLY PRECORDIAL R/S TRANSITION MINIMAL Q WAVES- HIGH LATERAL LEADS BORDERLINE ECG NO PREVIOUS ECG AVAILABLE FOR COMPARISON Electronically Signed On 05-18-2022 13:12:52 CHECK WRITER SALESPERSON by Robert Roth D.O.
[2022-05-18 12:34] LABS: Basophils Absolute Auto 0.1 K/mm3 (0.0-0.1); Basophils Percent Auto 0.7 % (0.2-1.2); Eosinophils Absolute Auto 0.2 K/mm3 (0-0.3); Eosinophils Percent Auto 2.1 % (0-4.4); Hematocrit 47.4 % (42.0-52.0); Hemoglobin 15.8 g/dL (14.0-18.0); Immature Granulocyte Absolute 0.02 K/mm3 (0.00-0.031); Immature Granulocyte Percent A 0.3 % (0-0.5); Lymphocytes Absolute Auto 2.58 K/mm3 (0.9-3.2); Lymphocytes Percent Auto 35.6 % (18.3-44.2); Mean Corpuscular HGB Conc 33.3 g/dl (32-36); Mean Corpuscular Hemoglobin 29.5 pg (26-34); Mean Corpuscular Volume 88.4 fl (80-100); Mean Platelet Volume 10.1 fl (7.4-10.4); Monocytes Absolute Auto 0.5 K/mm3 (0.1-0.6); Monocytes Percent Auto 7.3 % (2.6-8.5); Neutrophils Absolute Auto 3.9 K/mm3 (1.3-6.7); Platelet Count Result 285 k/mm3 (150-375); Red Blood Count 5.36 M/mm3 (4.6-6.20); Red Cell Distribution Width 12.5 % (11.5-14.5); White Blood Count 7.2 K/mm3 (4.5-10.0)
[2022-05-18 12:41] LABS: Prothrombin Time 12.9 Seconds (11.1-14.7)
[2022-05-18 12:42] LABS: Partial Thromboplastin Time 29.7 SECONDS (22.3-36.8)
[2022-05-18 12:44] LABS: Alanine Aminotransferase 57 U/L (6-50); Albumin Level 4.6 g/dL (3.5-5.1); Alkaline Phosphatase 69 U/L (38-126); Anion Gap 5 mmol/L (8-16); Aspartate Amino Transferase 31 U/L (17-59); Bilirubin,Total 0.8 mg/dL (0.2-1.3); Blood Urea Nitrogen 12 mg/dL (9-20); Calcium 8.7 mg/dL (8.4-10.2); Carbon Dioxide 31 mmol/L (22-30); Chloride 100 mmol/L (98-107); Estimated CRCL calculation 102 ml/min; Estimated Glomerular Filt Rate > 60; Glucose 94 mg/dL (65-110); Lipase 114 U/L (23-300); Potassium 3.7 mmol/L (3.4-5.0); Sodium 136 mmol/L (137-145)
[2022-05-18 12:56] LABS: Troponin I < 0.012 ng/mL (0.000-0.034)
[2022-05-18 16:56] VITALS: BP 126/84; PULSE 80; RESP 17; TEMP 36.6; O2SAT 100
[2022-05-18 17:25] LABS: Troponin I < 0.012 ng/mL (0.000-0.034)
[2022-05-18 19:00] LABS: Troponin I < 0.012 ng/mL (0.000-0.034)
[2022-05-18 19:17] VITALS: BP 136/85; PULSE 81; RESP 20; TEMP 36.6; O2SAT 100
[2022-05-18 20:37] VITALS: BP 130/88; PULSE 60; RESP 16; TEMP 36.6; O2SAT 98
--- NOTE | 2022-05-18 20:43 | ED.CHESTPAIN ---
HPI - Chest Pain General Chief Complaint: Chest Pain Stated Complaint: chest/back pain Time Seen by Provider: 05/18/22 20:41 History of Present Illness HPI narrative: This is a 37-year-old male with past medical history of cholecystitis status postcholecystectomy, who presents to the emergency department complaining of back pain for the past several weeks. He describes the pain as constant, dull, intermittently radiating up towards the head, down towards the abdomen and into the groin, also associated with intermittent numbness and difficulty with urination. He states has been seen by his primary care doctor for the same and has a MRI scheduled for next week. He denies loss or difficulty breathing Related Data Allergies Allergy/AdvReac Type Severity Reaction Status Date / Time No Known Allergies Allergy Verified 05/02/22 15:32 Review of Systems Review of Systems: CONSTITUTIONAL: 23 pound weight loss in the last 2 months, Chills denies fever, or sweats. EYES: Denies visual changes, redness, or discharge. CARDIOVASCULAR: Back pain radiating to the chest denies palpitations, or edema. RESPIRATORY: Denies cough or dyspnea. GASTROINTESTINAL: Aggravating radiating to the abdomen, intermittent nausea denies vomiting, or diarrhea. GENITOURINARY: Denies dysuria or hematuria. SKIN: Denies rash or itching. MUSCULOSKELETAL: Denies back pain, joint pain, or myalgia. NEUROLOGIC: Intermittent numbness of the groin denies headache, dizziness, or weakness. PSYCHIATRIC: Denies anxiety or depression. PMFSH Past Medical History Medical History Chest pain GERD (gastroesophageal reflux disease) Nausea Obesity Patient denies significant medical history RUQ pain Surgical History Surgical History H/O right inguinal hernia repair Hx laparoscopic cholecystectomy Lap Eduarda w [facility] on 03/29/22 Family History Family History Mother Hypertension Other Carcinoma of colon Diabetes mellitus Social History Social History Smoking status: Never smoker Alcohol intake: current Alcohol use details: NOT IN SEVERAL MONTHS Substance use: never Substance use type: does not use Lack of Transportation: No Lack of Food: Never True Current Housing: I Have Housing Concerned About Future Housing: No Difficulty Paying Gas/Electric Bills: No Difficulty Paying for Meds: No Currently Unemployed: No Education: Trade/Vocational Certificate Difficulty w/ Childcare or Family Care: No 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 EYES: PERRLA and EOMI. ENT: Nares clear, no rhinorrhea or epistaxis. Mucous membranes moist. Oropharynx without tonsillar hypertrophy exudate or other lesions. NECK: Supple. No adenopathy or masses. No carotid bruits or JVD CHEST: Clear to auscultation. No respiratory distress. No wheezes rales or rhonchi HEART: Regular rate and rhythm. No murmur heard. Normal peripheral pulses. ABDOMEN: Soft, nontender, nondistended, normal active bowel sounds. BACK: Midline thoracic spine tenderness to palpation at approximately T9 without step-off or crepitus EXTREMITIES: Normal range of motion. No edema. SKIN: Warm, dry, no rash. NEURO: No focal deficits. Alert and oriented x3. PSYCH: Normal mood and affect. Course Course Emergency Course: 21:50 - CTA not concerning for dissection or aneurysm. No other abnormalities of the spine including lytic or blastic lesions are noted. Discussed findings with the patient with recommendations to follow-up with his primary care doctor and proceed with the previously scheduled MRI. Discussed return e
[2022-05-18 22:18] VITALS: BP 131/78; PULSE 72; RESP 16; O2SAT 98
== END 2022-05-18 22:20 | disposition home or self-care (01) ==
PROVIDERS: Emergency Medicine; Emergency Provider Preventive Medicine Aerospace Medicine; PCP Emergency Medicine
DX: M54.9 Dorsalgia, unspecified (principal); K21.9 Gastro-esophageal reflux disease without esophagitis; E66.9 Obesity, unspecified; Z68.28 Body mass index [BMI] 28.0-28.9, adult; R94.31 Abnormal electrocardiogram [ECG] [EKG]
CPT/HCPCS: 36415; 71046; 71275; 74174; 80053; 83690; 84484; 85025; 85610; 85730; 93005; 99284; Q9967

== ENCOUNTER 2022-05-22 15:30 | Outpatient (CLI) | payer BC, SELFPAY ==
--- NOTE | ~2022-05-22 | MR_ITS ---
EXAMINATION: MR lumbar spine wo/w con DATE: 05/22/2022 16:55 INDICATION: Back pain. Saddle anesthesia. TECHNIQUE: Magnetic resonance imaging (MRI) of the lumbar spine was performed without and with 20 mL MultiHance intravenous contrast. COMPARISON: None FINDINGS: There is 3 degrees dextrocurvature of thoracolumbar spine. Vertebral body heights are pallavi l. There is mildly decreased disc height at L3-L4, L4-L5, and L5-S1. The distal spinal cord signal in tensity is normal. The conus medullaris is at L1. The following disc levels are specifically discusse d: L1-L2: The disc does not extend beyond the endplate margin. There is mild bilateral facet joint osteo arthritis. There is no neural foraminal stenosis. There is no central canal stenosis. L2-L3: The disc does not extend beyond the endplate margin. There is mild right facet joint osteoarth ritis. There is no neural foraminal stenosis. There is no central canal stenosis. L3-L4: The disc is mildly bulging. There is no facet joint osteoarthritis. There is mild bilateral ne ural foraminal stenosis. There is mild central canal stenosis. L4-L5: There is a central extrusion. There is no facet joint osteoarthritis. There is mild bilateral neural foraminal stenosis. There is mild central canal stenosis. L5-S1: There is a central protrusion. There is moderate right and severe left facet joint osteoarthri tis. There is no neural foraminal stenosis. There is mild central canal stenosis. IMPRESSION: 1. Mild lumbar spondylosis. Reviewed, dictated and finalized at location A. MACY COORDINATOR IMPRESSION: 1. Mild lumbar spondylosis.
--- NOTE | ~2022-05-22 | MR_ITS ---
EXAMINATION: MR thoracic spine wo/w con DATE: 05/22/2022 16:56 INDICATION: Back pain. Saddle anesthesia. TECHNIQUE: Magnetic resonance imaging (MRI) of the thoracic spine was performed without and with 20 m L MultiHance intravenous contrast. COMPARISON: None FINDINGS: There is 5 degrees levocurvature of upper thoracic spine. There is mild chronic anterior we dging of T10 and T11 vertebral bodies. There is mildly decreased disc height at T6-T7 and T10-T11. At T6-T7, there is a right central extrusion with mild central canal stenosis and ventral indentation o f the spinal cord. At T7-T8, there is a right central protrusion with mild central canal stenosis and ventral indentation of the spinal cord. At T9-T10, there is a right central extrusion with mild cent ral canal stenosis and ventral indentation of the spinal cord. At T10-T11, there is a right central e xtrusion with mild central canal stenosis and ventral indentation of spinal cord. There is multilevel mild facet joint osteoarthritis. On the left, there is mild neural foraminal stenosis at T7-T8. The spinal cord to intensity is normal. IMPRESSION: 1. Mild thoracic spondylosis. Reviewed, dictated and finalized at location A. ER MAKER
[2022-05-22 17:32] LABS: CRP 0.8 mg/dL (<1.0)
[2022-05-22 17:36] LABS: Erythrocyte Sedimentation Rate 2 mm/hr (0-20)
[2022-05-22 18:50] LABS: Rheumatoid Factor < 8.6 IU/ML (<12)
== END 2022-05-22 15:31 | disposition home or self-care (01) ==
PROVIDERS: PCP Emergency Medicine; Visit Provider Emergency Medicine
DX: M25.50 Pain in unspecified joint (principal); R20.0 Anesthesia of skin; M54.9 Dorsalgia, unspecified; M47.894 Other spondylosis, thoracic region; M47.896 Other spondylosis, lumbar region
CPT/HCPCS: 36415; 72157; 72158; 85652; 86140; 86430; A9577

== ENCOUNTER 2022-06-20 00:44 | Day surgery (SDC) | payer BC, SELFPAY ==
[2022-06-07 09:55] VITALS: BMI 31.6
[2022-06-20 10:08] VITALS: BP 133/86; PULSE 67; RESP 16; TEMP 36; O2SAT 100; BMI 31.0
[2022-06-20] MEDS: LACTATED RINGERS 1,000 ML 150 ML IV CONT (10:19)
--- NOTE | 2022-06-20 10:22 | P.PNAN_ITS ---
Anes - Initial Pre Proc Eval Procedure: Operation Date: 06/20/22 11:30 Proposed Procedures p Colonoscopy - Baldo Davis MD Date/Time: 06/20/22 10:22 Surgeon: Baldo Davis MD Pre Op Diagnosis: abdominal pain, melena Patient Data Age: 37 Gender: M Height: 1.78 m Weight: 98.2 kg Last Vital Signs Temp 96.8 F L 06/20/22 10:08 Pulse 67 06/20/22 10:08 Resp 16 06/20/22 10:08 BP 133/86 06/20/22 10:08 Pulse Ox 100 06/20/22 10:08 O2 Del Method Room Air 06/20/22 10:08 Allergies Allergy/AdvReac Type Severity Reaction Status Date / Time No Known Allergies Allergy Verified 06/20/22 10:07 Home Medications Medication Instructions Recorded Confirmed Type omeprazole 40 mg capsule,delayed 40 mg PO DAILY 06/07/22 06/20/22 History release Patient hx anesthesia problems: none Family hx anesthesia problems: none Results Review: All pre-operative results and documents have been reviewed as part of the pre- operative evaluation. [facility] Past Medical History Medical History Chest pain GERD (gastroesophageal reflux disease) Nausea Obesity Patient denies significant medical history RUQ pain Surgical History Surgical History H/O right inguinal hernia repair Hx laparoscopic cholecystectomy Lap Eduarda w [facility] on 03/29/22 Family History Family History Mother Hypertension Other Carcinoma of colon Diabetes mellitus Social History Social History Smoking status: Never smoker Alcohol intake: current Alcohol use details: NOT IN SEVERAL MONTHS Substance use: never Substance use type: does not use Lack of Transportation: No Lack of Food: Never True Current Housing: I Have Housing Concerned About Future Housing: No Difficulty Paying Gas/Electric Bills: No Difficulty Paying for Meds: No Currently Unemployed: No Education: Trade/Vocational Certificate Difficulty w/ Childcare or Family Care: No Living arrangements: with family Occupation/Education: occupation 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 Informed Consent: The patient's anesthetic plan and its attendant risks and benefits were discussed with the patient/family/POA. Questions were solicited and answers provided to the satisfaction of the patient/family/POA.
--- NOTE | 2022-06-20 10:34 | PM.HPGS ---
History of Present Illness History of Present Illness Consent: Risks, benefits, and alternatives have been discussed and questions answered. Patient agrees to proceed with procedure. Chief complaint: abdominal pain, melena Narrative: Osmani Phillips is a 37 year old male with intermittent ruq pain, cholecystectomy did not help, he had imaging and even EUS that did not show major findings, now he will have colonoscopy Review of Systems Constitutional: Constitutional: Denies headache(s) and Denies weakness Eyes: Eyes: Denies blurry vision ENT: Reports Normal hearing present, Denies headache(s) and Denies neck pain Cardiovascular: Cardiovascular: Denies chest pain and Denies dyspnea Respiratory: Respiratory: Denies dyspnea Gastrointestinal: Gastrointestinal: Reports no additional gastrointestinal complaints Genitourinary: Genitourinary: Denies dysuria Musculoskeletal: Musculoskeletal: Denies neck pain Integumentary/Breasts: Skin/Breast: Denies dry skin Neurologic: Reports Normal hearing present, Denies headache(s) and Denies weakness Psychiatric: Psychiatric: Denies anxiety Endocrine: Endocrine: Denies change in body appearance Hematologic/Lymphatic: Hematologic/Lymphatic: Denies easy bleeding Allergic/Immunologic: Allergic/Immunologic: Denies urticaria PMFSH Past Medical History Medical History (Updated 06/02/22 @ 14:18 by Logan Davila MD) Chest pain GERD (gastroesophageal reflux disease) Nausea Obesity Patient denies significant medical history RUQ pain Surgical History Surgical History (Updated 06/20/22 @ 10:35 by Baldo Davis MD) H/O right inguinal hernia repair Hx laparoscopic cholecystectomy Lap Eduarad w [facility] on 03/29/22 Family History Family History Mother Hypertension Other Carcinoma of colon Diabetes mellitus Social History Social History Smoking status: Never smoker Alcohol intake: current Alcohol use details: NOT IN SEVERAL MONTHS Substance use: never Substance use type: does not use Lack of Transportation: No Lack of Food: Never True Current Housing: I Have Housing Concerned About Future Housing: No Difficulty Paying Gas/Electric Bills: No Difficulty Paying for Meds: No Currently Unemployed: No Education: Trade/Vocational Certificate Difficulty w/ Childcare or Family Care: No Living arrangements: with family Occupation/Education: occupation 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 Spiritual care concerns: No Meds Home Medications and Allergies Home Medications Medication Instructions Recorded Confirmed Type omeprazole 40 mg capsule,delayed 40 mg PO DAILY 06/07/22 06/20/22 History release Allergies Allergy/AdvReac Type Severity Reaction Status Date / Time No Known Allergies Allergy Verified 06/20/22 10:07 Vital Signs Vital Signs - 24 hr 06/20/22 10:08 Temperature 96.8 F L Pulse Rate 67 Respiratory Rate 16 Blood Pressure 133/86 Pulse Oximetry 100 Oxygen Delivery Room Air Exam Const: General: comfortable and no acute distress HENMT: Face/Nose/Sinus: Normal nares present Eyes: General: appearance normal, both eyes and all related structures Neck: Neck: no JVD Resp: Auscultation: clear to auscultation bilaterally Cardio: Rate: regular rate Rhythm: regular rhythm GI: Inspection: non-distended GI Palp: Yes Soft to palpation Skin: General skin exam: normal color Neuro: General: gait normal Speech: normal speech Extrem: General: normal to inspection Psych: Mental Status: mental status grossly normal Assessment and Plan Assessment and plan (1) Generalized postprandial abdominal pain: Code(s): R10.84 - Generalized abdominal pain Status: Acute Assessment and Plan: colonoscopy (2) Blood in stool: Code(s): K9
[2022-06-20 10:50] VITALS: BP 121/78; PULSE 65; RESP 16; O2SAT 94
[2022-06-20 11:00] VITALS: BP 124/75; PULSE 62; RESP 13; O2SAT 100
[2022-06-20 11:10] VITALS: BP 134/112; PULSE 67; RESP 19; O2SAT 99
[2022-06-20] MEDS: KETOROLAC 30 MG/ML VIAL (*BKC) IV PUSH (11:16)
--- NOTE | 2022-06-20 11:21 | SUR.PHASEII ---
went and spoke with Dr. Darden, patient tearful in recovery rating abdominal pain in the RUQ 10/10. Patient states this pain is worse than what he normally experiences. Per Dr. Darden order and give 30mg IV Tordol once.
== END 2022-06-20 11:50 | disposition home or self-care (01) ==
PROVIDERS: PCP Emergency Medicine; Visit Provider Internal Medicine Gastroenterology
PROC: 0DJD8ZZ Inspection of Lower Intestinal Tract, Via Natural or Artificial Opening Endoscopic (ICD-10-PCS; CPT 45378; principal; 2022-06-20 11:30)
DX: D12.4 Benign neoplasm of descending colon (principal); K64.8 Other hemorrhoids; K21.9 Gastro-esophageal reflux disease without esophagitis; E66.9 Obesity, unspecified; Z68.31 Body mass index [BMI] 31.0-31.9, adult; Z90.49 Acquired absence of other specified parts of digestive tract
CPT/HCPCS: 45385; 88305; J1885; J2704; J7120

== ENCOUNTER 2022-06-29 15:53 | Outpatient (CLI) | payer BC, SELFPAY ==
[2022-07-06 23:37] LABS: Coproporphyrin I 25.4 (6.5-33.2); Coproporphyrin III 55.3 (4.8-88.6)
== END 2022-06-29 15:54 | disposition home or self-care (01) ==
LOC: ANHLAB 15:54
PROVIDERS: PCP Emergency Medicine; Visit Provider Internal Medicine Gastroenterology
DX: R11.0 Nausea (principal)
CPT/HCPCS: 84120

== ENCOUNTER → 2023-03-15 09:59 | Outpatient (CLI) | payer BC, SELFPAY ==
--- NOTE | ~2023-03-15 | CT_ITS ---
EXAMINATION: CT pelvis wo con DATE: 03/15/2023 10:13 INDICATION: Right lower quadrant pain. History of hernia repair 2 years ago. TECHNIQUE: Computed tomography (CT) of the pelvis was performed without intravenous contrast. The dos e-length product was 566.69 mGy-cm. Automated exposure control and iterative reconstruction technique were employed. COMPARISON: CT dated 05/18/2022 FINDINGS: There are changes of right inguinal hernia repair. 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 No significant vascular abnormality. No lymphadenopathy. Normal appendix. Nonobstructi ve bowel gas pattern. Small fat-containing umbilical hernia. No acute osseous abnormality. IMPRESSION: 1. No acute abnormality of the pelvis. Reviewed, dictated and finalized at location A.
== END ==
PROVIDERS: PCP Surgery; Visit Provider Surgery
DX: R10.31 Right lower quadrant pain (principal)
CPT/HCPCS: 72192

== ENCOUNTER 2023-08-01 15:13 | Outpatient (CLI) | payer BC, SELFPAY ==
--- NOTE | ~2023-08-01 | CT_ITS ---
EXAMINATION: CT sinus wo con DATE: 08/01/2023 15:27 INDICATION: Chronic maxillary sinusitis TECHNIQUE: Computed tomography (CT) of the paranasal sinuses was performed without contrast. Iterativ e reconstruction technique was employed. Exam dose: 402.94 mGy-cm total exam DLP. COMPARISON: None FINDINGS: Mild leftward septal deviation. Regla bullosa and intralamellar cell of both middle nasal turbinates. There is prominent associated soft tissue swelling of the nasal turbinates. The frontal and sphenoid sinuses are clear. Minimal patchy septal soft tissue thickening of the ethmoid air cells. Patchy moderate nodular mucoperiosteal thickening of the maxillary sinuses. There is soft tissue thickening at the left maxillary ostium and proximal infundibulum. The right ost iomeatal unit is patent. The mastoid air cells are partially opacified on the left, well-developed and aerated otherwise bilat erally. IMPRESSION: Mild leftward septal deviation Regla bullosa and intralamellar cell of both middle nasal turbinates. There is prominent associated soft tissue swelling of the nasal turbinates Moderate nodular soft tissue thickening the exit sinuses and minimal patchy soft tissue thickening th e ethmoid air cells Soft tissue thickening of left maxillary ostium and proximal left infundibulum Reviewed, dictated and finalized at Location [facility]. Reviewed, dictated and finalized at location B. IMPRESSION: Mild leftward septal deviation Regla bullosa and intralamellar cell of both middle nasal turbinates. There is prominent associated soft tissue swelling of the nasal turbinates Moderate nodular soft tissue thickening the exit sinuses and minimal patchy sof t tissue thickening the ethmoid air cells Soft tissue thickening of left maxillary ostium and proximal left infundibulum
== END 2023-08-01 15:14 ==
LOC: GOSHIMG 15:14
PROVIDERS: PCP Emergency Medicine; Visit Provider Otolaryngology
DX: H70.10 Chronic mastoiditis, unspecified ear (principal); H83.8X9 Other specified diseases of inner ear, unspecified ear; J32.0 Chronic maxillary sinusitis; J34.2 Deviated nasal septum; J34.89 Other specified disorders of nose and nasal sinuses
CPT/HCPCS: 70486

== ENCOUNTER 2023-08-21 07:54 | Outpatient (CLI) | payer BC, SELFPAY | END 2023-08-21 07:55 | disposition home or self-care (01) | LOC: ANHAUDIO 07:55 | PROVIDERS: PCP Emergency Medicine; Visit Provider Otolaryngology | DX: H70.10 Chronic mastoiditis, unspecified ear (principal); J32.0 Chronic maxillary sinusitis; H83.8X9 Other specified diseases of inner ear, unspecified ear; H93.A9 Pulsatile tinnitus, unspecified ear; H93.8X9 Other specified disorders of ear, unspecified ear | CPT/HCPCS: 92552; 92556; 92567 ==

== ENCOUNTER 2023-09-14 08:19 | Outpatient (CLI) | payer BC, SELFPAY ==
--- NOTE | ~2023-09-14 | CT_ITS ---
EXAMINATION: CTA brain DATE: 09/14/2023 08:49 INDICATION: Pulsatile tinnitus. Superior semicircular canal dehiscence syndrome. Benign proximal vert igo. TECHNIQUE: Computed tomographic angiography (CTA) of the head was performed without and with 100 mL O mnipaque-350 intravenous contrast. Volume-rendered and maximum intensity projection 3D reconstruction s of the intracranial arteries were created by the technologist on a separate workstation. The mA was adjusted according to patient size. Iterative reconstruction technique was employed. The dose-length product was mGy-cm. COMPARISON: None. FINDINGS: No acute intracranial hemorrhage, acute infarction or abnormal extra axial fluid collection. Ventricl es are normal and symmetric. No mass/mass effect. Mild mucosal thickening the bilateral ethmoid and m axillary sinuses. The orbits are normal. The internal auditory canals and middle and inner ears struc tures appear unremarkable. Small left and trace right mastoid effusions. There is no hemodynamically significant stenosis in the vertebral, basilar and internal carotid arter ies. Vertebral arteries are codominant. There are no aneurysms identified. Both A1 and P1 segments a re patent. Cerebral arterial arborization appears symmetric. IMPRESSION: 1. Unremarkable cerebral CT angiogram. 2. Small left and trace right mastoid effusions. Bilateral internal auditory canals and middle and in ner ear structures appear unremarkable. Reviewed, dictated and finalized at location A. IMPRESSION: 1. Unremarkable cerebral CT angiogram. 2. Small left and trace right mastoid effusions. Bilateral internal auditory ca nals and middle and inner ear structures appear unremarkable.
== END 2023-09-14 08:20 ==
LOC: MICIMG 08:20
PROVIDERS: PCP Otolaryngology; Visit Provider Otolaryngology
DX: H93.A9 Pulsatile tinnitus, unspecified ear (principal)
CPT/HCPCS: 70496; Q9967